=== PATIENT | female | born 1975 | race Caucasian/White ===

== ENCOUNTER 2024-12-21 02:24 | Day surgery (SDC) | payer OTHER, SELFPAY ==
[2024-12-10 09:57] VITALS: BMI 21.4
--- NOTE | 2024-12-10 09:58 | PC.NURSE ---
Report to the Outpatient Waiting Room, entrance under the green pavilion located off [facility], at time ___0600____ on date ___12/21/24____. Planned Procedure Time: ____729____.? Time changes happen often and if your time is changed the preop area will call you the afternoon before. - You and your visitor will be asked to self-screen and do not enter if you have any COVID symptoms. Please call surgeon if you need to reschedule. - A mask is optional within the hospital at this time. Patients may have clear liquids (water, carbonated beverages, clear teas, apple juice) until 3 hours prior to surgery with a maximum of 20 ounces. - No food from midnight until time of surgery and no smoking, or chewing tobacco (or any form of nicotine). No chewing gum, candy or mints. Take only the following medications with a SIP of water on the morning of surgery: None DO NOT STOP ANY OF YOUR OTHER PRESCRIPTION MEDICATIONS PRIOR TO SURGERY EXCEPT THE FOLLOWING Hold all vitamins and supplements for 3 days per anesthesiologist. Please no make-up, nail setswana, hairspray, perfume, deodorant, or body powder the day of surgery.? No jewelry (including any body piercings) or valuables the day of surgery, leave them at home.? Please take a shower or bath the night before, or the morning of, surgery with an antibacterial soap.? Wear comfortable, loose fitting clothing.? Children are encouraged to wear pajamas. - Jewelry must be removed prior to entering the operating room.? Rings and piercings that are not removed may be cut off. - The hospital will not accept responsibility for valuables.? - Please leave all valuables, including medications, at home the day of surgery. If you are going home after surgery, a licensed laborer driver must drive you home.? - NO public transportation without another adult if you receive anesthesia. - We recommend that an adult stay with you for 24 hours following discharge. - We also recommend that you do not drive, make important decision, drink alcoholic beverages, or take any drugs that were not prescribed by your health care provider for at least 24 hours after your discharge time. Follow any additional instructions given to you from your surgeon. Telephone instructions given to Cara and asked if any additional questions and then verbalized understanding. Patient advised to call surgeon office or pre surgery nurse liaison [phone] if any additional questions.
--- OUTSIDE RECORDS SUMMARY | 2024-12-21 02:27 | XMS_ITS | Encounter Summary ---
Author Organization [facility] Facility Care Team Providers Care Rate Clerk Name Role Phone Francisco Kumar MD Primary Care Provider [phone] Maddi Holliday LIVESTOCK FARMWORKER Primary Care Provider Encounter Details Date Type Department Care Team (Latest Contact Info) Description 10/08/2017 Orders Only [facility] CLINCONV ProviderDavin MD [address] [place] [id number] Social History Tobacco Use Types Packs/Day Years Used Date Smoking Tobacco: Never Assessed Comments Unknown Sex and Gender Information Value Date Recorded Sex Assigned at Not on file Legal Sex Female 12:52 AM ENDOSCOPE TECHNICIAN Gender Identity Female 07/10/2022 2:49 PM ENDOSCOPE TECHNICIAN Sexual Orientation Not on file documented as of this encounter Plan of Treatment Not on file documented as of this encounter Procedures Procedure Name Priority Date/Time Associated Diagnosis Comments SCAN - LABS 10/09/2017 12:00 AM ENDOSCOPE TECHNICIAN documented in this encounter Results * SCAN - LABS (10/09/2017 12:00 AM ENDOSCOPE TECHNICIAN) Narrative 10/09/2017 12:00 AM ENDOSCOPE TECHNICIAN Ordered by an unspecified provider. Historical Provider Final Res ult documented in this encounter Visit Diagnoses Not on filedocumented in this encounter Care Teams Rate Clerk Relationship Specialty Start Date End Date Francisco Kumar MD PCP - General Family Medicine 05/18/19 09/24/22 Maddi Holliday NP [address] [place] [address] [id number] PCP - General Family Practice 09/25/22 documented as of this encounter
--- OUTSIDE RECORDS SUMMARY | 2024-12-21 02:27 | XMS_ITS | Clinical Summary ---
Author Organization [facility] Address [address] [place] [id number] Care Team Providers Care Practical Nursing Teacher Name Role Phone Mg Maddiitalo Maxwell APRN Primary Care Provider Encounters Date Type Department Care Team Description 11/24/2024 2:17 PM CDT - 11/24/2024 11:59 PM CDT Hospital Encounter [facility] Mammography [address] [place], [place] [id number] Alexander ms, Jones German, AIRCRAFT ENGINE CYLINDER MECHANIC Discharge Disposition: Home or Self Care (Routine Discharge) 11/24/2024 Travel from Last 3 Months Social History Tobacco Use Types Packs/Day Years Used Date Smoking Tobacco: Never Assessed Comments Unknown Sex and Gender Information Value Date Recorded Sex Assigned at Female 11/24/2024 2:12 PM CDT Legal Sex Female 8:54 PM CDT Gender Identity Female 10/04/2021 4:37 PM QUANTITATIVE CONSULTANT Sexual Orientation Not on file Last Filed Vital Signs Vital Sign Reading Time Taken Comments Blood Pressure 112/68 12/10/2016 10:51 AM CDT Pulse 60 12/10/2016 10:51 AM CDT Temperature - - Respiratory Rate - - Oxygen Saturation - - Inhaled Oxygen Concentration - - Weight 67.1 kg (148 lb) 12/10/2016 10:51 AM CDT Height 175.3 cm (5' 9 ) 12/10/2016 10:51 AM CDT Body Mass Index 21.86 12/10/2016 10:51 AM CDT Plan of Treatment Health Maintenance Due Date Last Done Comments Cervical Cancer Screening Pap Smear (Age 30 to 64) Every 3 Years 1977 Colorectal Cancer Screening Colonoscopy (10 Years) 1977 Annual Physical 1980 Hepatitis C 1995 Hepatitis B Vaccines (1 of 3 - 19+ 3-dose series) 1996 Cervical Cancer Screening Pap with HPV Testing (Age 30 to 64) Every 5 Years 2007 Cervical Cancer Screening with HPV 2007 COVID-19 Vaccine ( season) 2024 Mammogram Screening 11/24/2026 11/24/2024, 11/18/2023, 11/14/2022, Additional history exists DTaP, Tdap and Td Vaccines (4 - Td or Tdap) 07/31/2029 07/31/2019, 08/26/2007, 08/26/2007 Meningococcal B Vaccine Aged Out No l onger eligible based on patient's age to complete this topic Meningococcal Vaccine Aged Out No ousmane get eligible based on patient's age to complete this topic Pneumococcal Vaccine: Pediatrics (0 to 5 Years) and At-Risk Patients (6 to 49 Years) Aged Out No longer eligible based on patient's age to complete this topic RSV Immunizations Under 20 Months Aged Out No longer eligible based on patient's age to complete this topic Procedures Procedure Name Priority Date/Time Associated Diagnosis Comments MG SCREENING W SHANTAL MAKAYLA DIGI Routine 11/24/2024 2:32 PM CDT Visit for screening mammogram from Last 3 Months Results * MG SCREENING W SHANTAL MAKAYLA DIGI (11/24/2024 2:32 PM CDT) Anatomical Region Laterality Modality Breast Bilateral Mammography 11/24/2024 3:02 PM CDT Impressions 11/24/2024 3:13 PM CDT IMPRESSION: No significant interval change. No mammographic evidence of malignancy. Recommend screening mammography bilaterally in 12 months. Given extreme dense breast density, supplemental screening MRI can be considered as clinically appropriate. RECOMMENDATION: As discussed in reportBilateral OVERALL IMAGING ASSESSMENT: ACR BI-RADS 2 - BENIGN FINDING(S). Ordered By: JONES TAVAREZ Interpreted By: Eren Reis, 11/24/2024 3:02 PM Narrative 11/24/2024 3:13 PM CDT [facility] [address] [address] EXAMINATION: MG SCREENING W SHANTAL MAKAYLA DIGI INDICATIONS: Screening TECHNIQUE: Digital full field CC and MLO screening mammography bilaterally to include 3-D Tomosynthesis technique. This study was read with the assistance of a computer-aided detection system. HISTORY: No reported breast complaint. No documented personal or first degree family history of breast cancer. No documented prior breast procedure. COMPARISON: 11/18/2023, 11/14/2022, 10/05/2021, 08/23/2020, and 07/09/2018. TISSUE DENSITY: The breasts are extremely dense, which lowers the sensitivity of mammography. FINDINGS: Few typically benign round calcifications. No suspicious microcalcification or mass. Stable ovoid equal density asymmetry within the upper retroareolar right breast. No developing asymmetry or architectural distortion. No axillary adenopathy. us Jones Tavarez NP MAMMO Final Result from Last [address] [facility] Care Teams Practical Nursing Teacher Relationship Specialty Start Date End Date Maddi Holliday APRN [address] [place] [address] [phone] [facility] - General 11/11/23
--- OUTSIDE RECORDS SUMMARY | 2024-12-21 02:27 | XMS_ITS | Clinical Summary ---
Author Organization [facility] Address [address] [place] [address] Care Team Providers Care Statistician Name Role Phone Unavailable Primary Care Provider Unavailabl e Source Comments [facility],non-owned Affiliates and Associated Physician Practices is amultiple site organization consisting of ambulatory clinics and hospital sitesin [place], [place], [place] and [place]. This disclosure is being madepursuant to the Care Everywhere program and may not contain all information available regarding this patient. Last updated 18.[facility] [employer] Social History Tobacco Use Types Packs/Day Years Used Date Smoking Tobacco: Never Assessed Comments Unknown Sex and Gender Information Value Date Recorded Sex Assigned at Not on file Legal Sex Female 10:41 AM CDT Gender Identity Not on file Sexual Orientation Not on file Plan of Treatment Health Maintenance Due Date Last Done Comments COLOGUARD (AGES 45-75) - COL ON CA SCREENING 1977 COLON MONITORING 1977 COLONOSCOPY - COLON CA SCREENING 1977 CT COLONOGRAPHY - COLON CA SCREENING 1977 Colorectal Cancer Screening 1977 FIT - COLON CA SCREENING 1977 FLEX SIG - COLON CA SCREENING 1977 LIPID TESTING 1977 MAMMOGRAM 1977 HIV SCREENING 1992 HEPATITIS C SCREENING 05/29/1995 DTAP/TDAP/TD VACCINES (1 - Tdap) 1996 HEPATITIS B VACCINE (1 of 3 - 19+ 3-dose series) 1996 COVID-19 VACCINE ( - 2023-2 5 season) 2024 DEPRESSION SCREENING 08/26/2024 INFLUENZA VACCINE (Season Ended) 2025 ZOSTER VACCINE (1 of 2) 2027 HIB VACCINE Aged Out No longer eligi ble based on patient's age to complete this topic HPV VACCINE Aged Out No longer eligi ble based on patient's age to complete this topic MENINGOCOCCAL (Group B) VACC INE SHARED DECISION-MAKING Aged Out No longer eligibl e based on patient's age to complete this topic MENINGOCOCCAL GROUPS A/C/Y/W VACCINE Aged Out No longer eligible b ased on patient's age to complete this topic PNEUMOCOCCAL VACCINE Aged Out No long er eligible based on patient's age to complete this topic Insurance
--- OUTSIDE RECORDS SUMMARY | 2024-12-21 02:27 | XMS_ITS | Encounter Summary ---
Author Organization [facility] Address [address] [place] [address] Care Team Providers Care Gm Mobile Name Role Phone Maddi Holliday NP Primary Care Provider [phone] Encounter Details Date Type Department Care Team ([facility] st Contact Info) Description 11/11/2024 Results Follow-Up [facility] Primary Care at [place] [address] [place] [address] Maddi Holliday NP [address] [facility] [address] [place] [address] Social History Tobacco Use Types Packs/Day Years Used Date Smoking Tobacco: Never Smokeless Tobacco: Never Alcohol Use Standard Drinks/Week Comments Yes 0 (1 standard drink = 0.6 oz pur e alcohol) social AUDIT-C Answer Date Recorded Q1: How often do you have a drink containing alc ohol? Monthly or less 05/01/2023 Q2: How many drinks containi ng alcohol do you have on a typical day when you are drinking? 1 or 2 05/01/2023 Q3: How often do you have si x or more drinks on one occasion? Never 05/01/2023 PHQ-2 Answer Date Recorded PHQ-2 Total Score (If total score is 3 or more points, staff should administer the PHQ-9) 0 10/07/2023 Personal Safety Answer Date Recorded Have you ever been in or are you currently in a harmful physical or emotional relationship or is someone making you feel afraid or unsafe? Denies 05/06/2023 Comments No Sex and Gender Information Value Date Recorded Sex Assigned at Not on file Legal Sex Female 12:52 AM ASSISTANT PROFESSOR OF ANTHROPOLOGY Gender Identity Female 07/10/2022 2:49 PM ASSISTANT PROFESSOR OF ANTHROPOLOGY Sexual Orientation Not on file documented as of this encounter Plan of Treatment Not on file documented as of this encounter Visit Diagnoses Not on filedocumented in this encounter Care Teams Gm Mobile Relationship Specialty Start Date End Date Maddi Holliday NP [address] [place] [id number] PCP - General Family Practice 09/25/22 documented as of this encounter
--- OUTSIDE RECORDS SUMMARY | 2024-12-21 02:27 | XMS_ITS | Clinical Summary ---
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 Name Role Phone Maddi Holliday NP Primary Care Provider [phone] Allergies No known active allergies Medications fish oil-dha-epa 1,200-144-216 mg capsule Take by mouth daily Active ascorbic acid (vitamin C) 1,000 mg tablet Take 1 tablet (1,000 mg total) by mouth 2 (two) times a day Active cholecalciferol (VITAMIN D-3) 2000 unit capsule 1 capsule (2,000 Units total) Active ferrous sulfate 325 mg (65 mg of elemental iron) tabletIndicatio ns:Iron Deficiency Anemia Take 1 tablet (325 mg total) by mouth every other day Active ALPRAZolam (XANAX) 1 mg tabletIndicatio ns:Social anxiety disorder Take 1 tablet (1 mg total) by mouth nightly as needed for anxiety 20 tablet 11/17/2024 Active Active Problems Problem Noted Date Diagnosed Date Vitamin D deficiency 11/17/2024 Assessment & Plan (11/17/2024 7:50 AM CDT): Controlled Continued on vitamin D3 2000 international units daily Low iron 10/07/2023 Assessment & Plan (11/17/2024 7:30 AM CDT): Controlled, but low normal Advised to increase ferrous sulfate to daily Assessment & Plan (10/07/2023 8:39 AM HOOP COILER): New diagnosis, stability unknown Ordered CBC, iron profile, and ferritin level Screening for thyroid disorder 10/07/2023 History of colon polyps 01/16/2023 Encounter for screening mamm ogram for malignant neoplasm of breast 09/27/2022 Assessment & Plan (09/27/2022 8:00 AM HOOP COILER): Encouraged to keep appointment for mammogram scheduled 09/2022, ordered by immigration case worker. Screening for iron deficiency anemia 09/27/2022 Assessment & Plan (09/27/2022 7:59 AM HOOP COILER): Ordered CBC. Encounter for vitamin deficiency screening 09/27 Assessment & Plan (09/27/2022 8:00 AM HOOP COILER): Ordered vitamin-D 25 [place]. Lipid screening 09/27/2022 Assessment & Plan (09/27/2022 8:00 AM HOOP COILER): Ordered lipid panel. Diabetes mellitus screening 09/27/2022 Assessment & Plan (09/27/2022 8:02 AM HOOP COILER): Ordered CMP and hemoglobin A1c. Screening for colon cancer 09/27/2022 Assessment & Plan (09/27/2022 8:00 AM HOOP COILER): Referred for screening colonoscopy. Social anxiety disorder 09/27/2022 Assessment & Plan (11/17/2024 7:29 AM CDT): Controlled Continued on alprazolam as directed as needed Assessment & Plan (10/07/2023 8:36 AM HOOP COILER): Chronic, stable, controlled with medication Continued on alprazolam as directed as needed, refill for alprazolam sent to pharmacy Assessment & Plan (09/27/2022 8:04 AM HOOP COILER): Chronic, stable, controlled with medication-refill for alprazolam sent to pharmacy per patient request. Slow transit constipation 09/27/2022 Assessment & Plan (11/17/2024 7:29 AM CDT): Controlled Continued on MiraLax as directed as needed Assessment & Plan (10/07/2023 8:37 AM HOOP COILER): Chronic, stable, controlled with PRN medication Continued on MiraLax as directed as needed Assessment & Plan (09/27/2022 8:05 AM HOOP COILER): Chronic, stable, controlled with diet-encouraged high-fiber diet, can use MiraLax as directed as needed. Primary insomnia 09/27/2022 Assessment & Plan (11/17/2024 7:29 AM CDT): Controlled Continued on alprazolam for social anxiety, can take HS if needed for insomnia Assessment & Plan (10/07/2023 8:38 AM HOOP COILER): Chronic, stable Continued on alprazolam for social anxiety, can take HS if needed for insomnia Assessment & Plan (09/27/2022 8:08 AM HOOP COILER): Chronic, stable, uncontrolled-can try melatonin or Benadryl for sleep and encouraged good sleep hygiene, turning off electronic devices 2 hour before bedtime, avoiding caffeine in the afternoon/early evening, etc.. Family history of ventricular tachycardia 2019 Annual physical exam 03/31/2019 Overview (03/31/2019): OVerall well adult history and physical exam. Assessment & Plan (11/17/2024 7:28 AM CDT): Reviewed past and current medical history, surgical history, social history, family history, current medications, and allergies. The chart was updated to identify any changes in these areas. Assessment & Plan (10/07/2023 8:36 AM HOOP COILER): Reviewed past and current medical history, surgical history, social history, family history, current medications, and allergies. The chart was updated to identify any changes in these areas. A ROS and PE were performed. Medication was refilled and labs were ordered. Discussed screening colonoscopy, well woman exam/cervical cancer screening, screening mammogram, and recommended immunizations. Patient will follow-up annually for a physical exam, sooner if needed. Assessment & Plan (09/27/2022 8:02 AM HOOP COILER): Reviewed past and current medical history, surgical history, social history, family history, current medications, and allergies. A ROS and PE were performed. Medication was refilled and labs were ordered and a referral was made for a screening colonoscopy. Discussed screening colonoscopy, well woman exam/cervical cancer screening, screening mammogram, monthly breast self-exams, and recommended immunizations. Patient will schedule appointment for annual PE. Resolved Problems Problem Noted Date Diagnosed Date Resolved Date Right lower quadrant abdominal mass 11/19/2023 11/17/2024 Assessment & Plan (11/19/2023 7:16 PM CDT): Acute, with no visible or palpable mass noted, states episodic per patient report Ordered US abdomen Hyponatremia 02/25/2023 11/19/2023 Assessment & Plan (10/07/2023 8:36 AM HOOP COILER): New diagnosis, stability unknown Ordered CMP Palpitations 07/31/2019 10/07/2023 Assessment & Plan (09/27/2022 8:02 AM HOOP COILER): Chronic, episodic, stable-can refer to Cardiology if/when interested, especially if symptom increases in frequency or severity or if experiencing chest pain and/or shortness of breath. Ordered CBC, CMP, iron profile and TSH level. Assessment & Plan (07/31/2019 12:05 PM HOOP COILER): With past 2 weeks heart pounding and dyspnea on exertion. Worsening and onset directly after beginning exertion. No change in exercise levels. No other associated symptoms. Will obtain lab workup and refer to Cardiology for further workup. Advised to avoid exertion if triggering symptoms. Follow up with primary provider as needed Encounters Date Type Department Care Team Description 11/17/2024 7:30 AM CDT Office Visit [facility] Primary Care at [address] [place] [address] Maddi Holliday NP Annual physical exam (Primary Dx); Social anxiety disorder; Slow transit constipation; Primary insomnia; Low iron; Vitamin D deficiency; Need for hepatitis B screening test; Need for hepatitis C screening test 11/11/2024 Results Follow-Up [facility] Primary Care at [address] [place] [address] Maddi Holliday NP from Last 3 Months Immunizations Immunization Administration Dates Next Due Influenza, Quadrivalent, Spl it, Preservative Free, Intramuscular 07/22/2023,07/01/2020 Influenza, Trivalent, Preser vative Free, Intramuscular 06/11/2016 Influenza, Unspecified 05/26/2024,2022,06/24/2022,05/26 TD Preservative Free 08/26/2007 Tdap 07/31/2019,08/26/2007 Surgical History Surgery Date Site/Laterality Comments CERVICAL BIOPSY W/ LOOP ELEC TRODE EXCISION COLONOSCOPY ARM SURGERY Left 1994, metal removed 1995 Medical History Medical History Date Comments Right lower quadrant abdominal mass 11/19/2023 Family History Medical History Relation Name Comments Clotting disorder Father E Naeger Depression Father E Naeger Heart disease Father E Naeger Hypertension Father E Naeger COPD Maternal Grandmother A Kreitler Hypertension Mother Heart disease Paternal Grandfather H Naeger Diabetes Paternal Grandmother H Naeger Heart disease Paternal Grandmother H Naeger Stroke Paternal Grandmother H Naeger Relation Name Status Comments Father E Naeger Alive Maternal Grandmother A Kreitler Mother Alive Paternal Grandfather H Naeger Paternal Grandmother H Naeger Social History Tobacco Use Types Packs/Day Years Used Date Smoking Tobacco: Never Smokeless Tobacco: Never Tobacco Cessation:Counseling Given: Not Answered Alcohol Use Standard Drinks/Week Comments Yes 0 [...] points, staff should administer the PHQ-9) 0 11/17/2024 PHQ-9 Answer Date Recorded PHQ-9 Total Score 4 11/17/2024 Personal Safety Answer Date Recorded Have you ever been in or are you currently in a harmful physical or emotional relationship or is someone making you feel afraid or unsafe? Denies 05/06/2023 Comments No Sex and Gender Information Value Date Recorded Sex Assigned at Not on file Legal Sex Female 12:52 AM HOOP COILER Gender Identity Female 07/10/2022 2:49 PM HOOP COILER Sexual Orientation Not on file Obstetrics History Last Filed Vital Signs Vital Sign Reading Time Taken Comments Blood Pressure 98/60 11/17/2024 7:32 AM CDT Pulse 72 11/17/2024 7:32 AM CDT Temperature 36.7 C (98.1 F) 11/17/2024 7:32 AM CDT Respiratory Rate 14 11/17/2024 7:32 AM CDT Oxygen Saturation 99% 11/17/2024 7:32 AM CDT Inhaled Oxygen Concentration - - Weight 69.6 kg (153 lb 8 oz) 11/17/2024 7:32 AM CDT Height 175 cm (5' 8.9 ) 11/17/2024 7:32 AM CDT Body Mass Index 22.74 11/17/2024 7:32 AM CDT Plan of Treatment Health Maintenance Due Date Last Done Comments Hepatitis C Screening 1975 Hepatitis B Screening 1995 Breast Cancer Screening-Mammogram 11/17/2024 11/18/2023, 11/18/2023, 11/14/2022, Additional history exists Depression Screening 11/17/2025 11/17/2024, 11/17/2024, 10/07/2023, Additional history exists Regular Well Visit/Exam 18-64 11/17/2025 11/17/2024, 10/07/2023, 09/25/2022, Additional history exists Colon Cancer Screening-Colonoscopy 05/06/2026 05/06/2023, 12/17/2022 Cervical Cancer Screening 08/08/2026 08/08/2023 DTaP/Tdap/Td Vaccine (3 - Td or Tdap) 07/31/2029 07/31/2019, 08/26/2007, 08/26/2007 Influenza Vaccine Completed 05/26/2024, , 06/26/2023, Additional history exists Pneumococcal vaccine <65 Aged Out No longer eligible based on patient's age to complete this topic Procedures Procedure Name Priority Date/Time Associated Diagnosis Comments HEMOGLOBIN A1C Routine 11/10/2024 8:26 AM CDT Annual physical exam COMPREHENSIVE METABOLIC PANEL Routine 11/10/2024 8:26 AM CDT Annual physical exam LIPID PANEL Routine 11/10/2024 8:26 AM CDT Annual physical exam IRON PROFILE W/ IBC Routine 11/10/2024 8 :26 AM CDT Low iron Annual physical exam PAP ONLY Routine 08/08/2023 COLONOSCOPY 05/06/2023 10:33 AM CDT SCREENING MAMMOGRAM 2D BILATERAL Schedule Routine, Read Routine (OP Routine) 08/23/2020 from Last 3 Months or Most Recently Relevant to Health Maintenance Results * (ABNORMAL) Iron profile w/ IBC (11/10/2024 8:26 AM CDT) [facility] Iron 40 40 - 190 mcg/dL [facility] TIBC 298 250 - 450 mcg/dL (calc) [facility] Iron saturation 13(L) 16 - 45 % (calc) [facility] Blood 11/10/2024 8:26 AM CDT 11/10/2024 8:27 AM CDT Narrative [facility] - 11/11/2024 6:55 AM CDT FASTING:YES FASTING: YES us Samantha Saldivar MD LAB BLOOD ORDERAB LES Final Result [facility] [id number] [place] [id number] * Hemoglobin A1c (11/10/2024 8:26 AM CDT) [facility] Hgb A1C 5.2 <5.7 % of total Hgb [facility] Comment: For the purpose of screening for the presence of diabetes: <5.7% Consistent with the absence of diabetes 5.7-6.4% Consistent with increased risk for diabetes (prediabetes) > or =6.5% Consistent with diabetes This assay result is consistent with a decreased risk of diabetes. Currently, no consensus exists regarding use of hemoglobin A1c for diagnosis of diabetes in children. According to [place] [employer] Association (ADA) guidelines, hemoglobin A1c <7.0% represents optimal control in non- diabetic patients. Different metrics may apply to specific patient populations. Standards of Medical Care in Diabetes(ADA). Blood 11/10/2024 8:26 AM CDT 11/10/2024 8:27 AM CDT Narrative [facility] - 11/11/2024 6:55 AM CDT FASTING:YES FASTING: YES Samantha Saldivar MD LAB BLOOD ORDERAB LES Final Result [facility] [address] [place] [address] * Lipid panel (11/10/2024 8:26 AM CDT) [facility] Cholesterol 150 <200 mg/dL [facility] HDL 61 > OR = 50 mg/dL [facility] Triglycerides 47 <150 mg/dL [facility] LDL 76 mg/dL (calc) [facility] Comment: Reference range: <100 Desirable range <100 mg/dL for primary prevention; <70 mg/dL for patients with CHD or diabetic patients with > or = 2 CHD risk factors. LDL-C is now calculated using the Marvin-Melany calculation, which is a validated novel method providing better accuracy than the Friedewald equation in the estimation of LDL-C. Marvin BINGHAM et al. SUSAN. 2013;310(19): 4077-5489 (http://education.Access MediQuip/faq/ERD803) Chol/HDL ratio 2.5 <5.0 (calc) [facility] Non-HDL, (LDL+VLDL) 89 <130 mg/dL (calc) [facility] Comment: For patients with diabetes plus 1 major ASCVD risk factor, treating to a non-HDL-C goal of <100 mg/dL (LDL-C of <70 mg/dL) is considered a therapeutic option. Blood 11/10/2024 8:26 AM CDT 11/10/2024 8:27 AM CDT Narrative [facility] - 11/11/2024 6:55 AM CDT FASTING:YES FASTING: YES us Samantha Saldivar MD LAB BLOOD ORDERAB LES Final Result [facility] [id number] [place] [id number] * (ABNORMAL) Comprehensive metabolic panel (11/10/2024 8:26 AM CDT) Pathologist [facility] Glucose 84 65 - 99 mg/dL [facility] Comment: Fasting reference interval BUN 22 7 - 25 mg/dL [facility] Creatinine 0.81 0.50 - 0.99 mg/dL [facility] eGFR 90 > OR = 60 mL/min/1.7 3m2 [facility] BUN/creat ratio SEE NOTE: 6 - 22 (calc) [facility] Comment: Not Reported: BUN and Creatinine are within reference range. Sodium 138 135 - 146 mmol/L [facility] Potassium, pl 4.0 3.5 - 5.3 mmol/L [facility] Chloride 105 98 - 110 mmol/L [facility] CO2 28 20 - 32 mmol/L [facility] Calcium 8.7 8.6 - 10.2 mg/dL [facility] Protein, sr 6.0(L) 6.1 - 8.1 g/dL [facility] Albumin 4.0 3.6 - 5.1 g/dL [facility] GLOBULIN 2.0 1.9 - 3.7 g/dL (calc) [facility] Alb/glob ratio 2.0 1.0 - 2.5 (calc) [facility] Bilirubin, total 0.5 0.2 - 1.2 mg/dL [facility] Alk phos 42 31 - 125 U/L [facility] AST 19 10 - 35 U/L [facility] ALT (SGPT) 25 6 - 29 U/L [facility] Blood 11/10/2024 8:26 AM CDT 11/10/2024 8:27 AM CDT Narrative [facility] - 11/11/2024 6:55 AM CDT FASTING:YES FASTING: YES Samantha Saldivar MD LAB BLOOD ORDERAB LES Final Result [facility] [id number] [place] [phone] * Pap Only (Cytology Component) (08/08/2023) Thin prep 08/08/2023 us Historical Provider LAB CYTOLOGY ORDERABLES F inal Result * COLONOSCOPY (05/06/2023 10:33 AM CDT) Anatomical Region Laterality Modality Other Narrative Procedure Note Alberto Gates MD - 05/06/2023 10:33 AM CDT [facility] GI ENDOSCOPY Patient Name: Cara Thakkar Procedure Date: 05/06/2023 10:33 AM Date of : 1975 Admit Type: Outpatient Age: 47 Gender: Female Attending MD: Alberto Gates M.D. Room: [facility] ENDOSCOPY ROOM 05 Note Status: Finalized Procedure: Colonoscopy Indications: High risk colon cancer surveillance: Personalhistory of colonic polyps Referring MD: Lino Caldwell Providers: Alberto Gates M.D. Medicines: Monitored Anesthesia Care Complications: No immediate complications. Estimated Blood Loss: Estimated blood loss was minimal. Procedure: The benefits, risks and alternatives of theprocedure and sedation were discussed and informed consentwas obtained. All questions were answered. Please referto the signed informed consent document in the medical record. The scope was passed under direct vision.The CF-H180AL colonoscope was introduced through theanus and advanced to the cecum, identified byappendiceal orifice and ileocecal valve. The colonoscopy was performed without difficulty. The patient tolerated the procedure well. The quality of the bowel preparation was evaluated using the BBPS (BostonBowel Preparation Scale) with scores of: Right Colon = 3, Transverse Colon = 3 and Left Colon = 3 (entiremucosa seen well with no residual staining, smallfragments of stool or opaque liquid). The total BBPS score equals 9. The ileocecal valve, appendiceal orifice, and rectum were photographed. Findings: The perianal and digital rectal examinations were normal. Site of prior polypectomy normal without any residual abnormaltissue. A 4 mm polyp was found in the transverse colon. The polyp wassessile. The polyp was removed with a cold snare. Resection and retrieval were complete. Estimated blood loss was minimal. The exam was otherwise without abnormality on direct and retroflexion views. Impression: - One 4 mm polyp in the transverse colon, removedwith a cold snare. Resected and retrieved. - Site of prior polypectomy normal without any residual abnormal tissue. - The examination was otherwise normal on directand retroflexion views. Recommendation: - Discharge patient to home. - Resume previous diet. - Continue present medications. - Await pathology results. - Patient has a contact number available for emergencies. The signs and symptoms of potential delayed complications were discussed with thepatient. Return to normal activities tomorrow. Written discharge instructions were provided to thepatient. - Repeat colonoscopy in 3 years for surveillance. Alberto Gates M.D. Alberto Gates M.D. 05/06/2023 11:10:37 AM . Number of Addenda: 0 Note Initiated On: 05/06/2023 10:33 AM Recognized by the [place] [employer] for promoting quality in endoscopy Alberto Gates MD ENDOSCOPY PROCEDURES Fin al Result * Screening Mammogram 2D Bilateral (08/23/2020) Anatomical Region Laterality Modality Breast Bilateral Mammography Historical Provider IMG MAMMO PROCEDURES Марина l Result from Last 3 Months or Most Recently Relevant to Health Maintenance Insurance [facility] [employer] PPO R [facility] Care Teams Petroleum Engineering Professor Relationship Specialty Start Date End Date Maddi Holliday NP [address] [place] [address] [place] [address] PCP - General Family Practice 09/25/22
--- OUTSIDE RECORDS SUMMARY | 2024-12-21 02:27 | XMS_ITS | Referral Summary ---
Author Organization [facility] Building Address [address] [place] [phone] Care Team Providers Care Professional Services Specialist Name Role Phone Maddi Holliday NP Primary Care Provider Encounters Date Type Department Care Team Description 11/17/2024 7:30 AM CDT Office Visit [facility] Primary Care at [address] [phone] Maddi Holliday NP Annual physical exam (Primary Dx); Social anxiety disorder; Slow transit constipation; Primary insomnia; Low iron; Vitamin D deficiency; Need for hepatitis B screening test; Need for hepatitis C screening test 11/11/2024 Results Follow-Up [facility] Medical [facility] Primary Care at [address] [phone] Maddi Holliday NP from Last 3 Months Allergies No known active allergies Medications fish [...] daily Assessment & Plan (10/07/2023 8:39 AM DRAFTER DIRECTIONAL SURVEY): New diagnosis, stability unknown Ordered CBC, iron profile, and ferritin level Screening for thyroid disorder 10/07/2023 History of colon polyps 01/16/2023 Encounter for screening mamm ogram for malignant neoplasm of breast 09/27/2022 Assessment & Plan (09/27/2022 8:00 AM DRAFTER DIRECTIONAL SURVEY): Encouraged to keep appointment for mammogram scheduled 09/2022, ordered by art glass designer. Screening for iron deficiency anemia 09/27/2022 Assessment & Plan (09/27/2022 7:59 AM DRAFTER DIRECTIONAL SURVEY): Ordered CBC. Encounter for vitamin deficiency screening 09/27 Assessment & Plan (09/27/2022 8:00 AM DRAFTER DIRECTIONAL SURVEY): Ordered vitamin-D 25 OH. Lipid screening 09/27/2022 Assessment & Plan (09/27/2022 8:00 AM DRAFTER DIRECTIONAL SURVEY): Ordered lipid panel. Diabetes mellitus screening 09/27/2022 Assessment & Plan (09/27/2022 8:02 AM DRAFTER DIRECTIONAL SURVEY): Ordered CMP and hemoglobin A1c. Screening for colon cancer 09/27/2022 Assessment & Plan (09/27/2022 8:00 AM DRAFTER DIRECTIONAL SURVEY): Referred for screening colonoscopy. Social anxiety disorder 09/27/2022 Assessment & Plan (11/17/2024 7:29 AM CDT): Controlled Continued on alprazolam as directed as needed Assessment & Plan (10/07/2023 8:36 AM DRAFTER DIRECTIONAL SURVEY): Chronic, stable, controlled with medication Continued on alprazolam as directed as needed, refill for alprazolam sent to pharmacy Assessment & Plan (09/27/2022 8:04 AM DRAFTER DIRECTIONAL SURVEY): Chronic, stable, controlled with medication-refill for alprazolam sent to pharmacy per patient request. Slow transit constipation 09/27/2022 Assessment & Plan (11/17/2024 7:29 AM CDT): Controlled Continued on MiraLax as directed as needed Assessment & Plan (10/07/2023 8:37 AM DRAFTER DIRECTIONAL SURVEY): Chronic, stable, controlled with PRN medication Continued on MiraLax as directed as needed Assessment & Plan (09/27/2022 8:05 AM DRAFTER DIRECTIONAL SURVEY): Chronic, stable, controlled with diet-encouraged high-fiber diet, can use MiraLax as directed as needed. Primary insomnia 09/27/2022 Assessment & Plan (11/17/2024 7:29 AM CDT): Controlled Continued on alprazolam for social anxiety, can take HS if needed for insomnia Assessment & Plan (10/07/2023 8:38 AM DRAFTER DIRECTIONAL SURVEY): Chronic, stable Continued on alprazolam for social anxiety, can take HS if needed for insomnia Assessment & Plan (09/27/2022 8:08 AM DRAFTER DIRECTIONAL SURVEY): Chronic, stable, uncontrolled-can try melatonin or Benadryl [...] areas. Assessment & Plan (10/07/2023 8:36 AM DRAFTER DIRECTIONAL SURVEY): Reviewed past and current medical history, surgical [...] needed. Assessment & Plan (09/27/2022 8:02 AM DRAFTER DIRECTIONAL SURVEY): Reviewed past and current medical history, surgical [...] 11/19/2023 Assessment & Plan (10/07/2023 8:36 AM DRAFTER DIRECTIONAL SURVEY): New diagnosis, stability unknown Ordered CMP Palpitations 07/31/2019 10/07/2023 Assessment & Plan (09/27/2022 8:02 AM DRAFTER DIRECTIONAL SURVEY): Chronic, episodic, stable-can refer to Cardiology if/when interested, especially if symptom increases in frequency or severity or if experiencing chest pain and/or shortness of breath. Ordered CBC, CMP, iron profile and TSH level. Assessment & Plan (07/31/2019 12:05 PM DRAFTER DIRECTIONAL SURVEY): With past 2 weeks heart pounding and dyspnea on exertion. Worsening and onset directly after beginning exertion. No change in exercise levels. No other associated symptoms. Will obtain lab workup and refer to Cardiology for further workup. Advised to avoid exertion if triggering symptoms. Follow up with primary provider as needed Immunizations Immunization Administration Dates Next Due Influenza, Quadrivalent, Spl it, Preservative Free, Intramuscular 07/22/2023,07/01/2020 Influenza, Trivalent, Preser vative Free, Intramuscular 06/11/2016 Influenza, Unspecified 05/26/2024,2022,06/24/2022,05/26 TD Preservative Free 08/26/2007 Tdap 07/31/2019,08/26/2007 Social History Tobacco Use Types Packs/Day Years [...] on file Legal Sex Female 12:52 AM DRAFTER DIRECTIONAL SURVEY Gender Identity Female 07/10/2022 2:49 PM DRAFTER DIRECTIONAL SURVEY Sexual Orientation Not on file Last Filed [...] 11/17/2024 7:32 AM CDT Plan of Treatment Not on file Procedures Procedure Name Priority Date/Time Associated Diagnosis [...] profile w/ IBC (11/10/2024 8:26 AM CDT) Iron 40 40 - 190 mcg/dL [facility] TIBC 298 250 - 450 mcg/dL (calc) [facility] Iron saturation 13(L) 16 - 45 % (calc) [facility] Blood 11/10/2024 8:26 AM CDT 11/10/2024 8:27 AM CDT Narrative [facility] - 11/11/2024 6:55 AM CDT FASTING:YES FASTING: YES Samantha Saldivar MD LAB BLOOD ORDERAB LES Final Result Performing Organization Address City/[facility]/ZIP Co de Phone Number [facility] [address] [phone] * Hemoglobin A1c (11/10/2024 8:26 AM CDT) Hgb A1C 5.2 <5.7 % of total Hgb [facility] Comment: For the purpose of screening for the presence of diabetes: <5.7% Consistent with the absence of diabetes 5.7-6.4% Consistent with increased risk for diabetes (prediabetes) > or =6.5% Consistent with diabetes This assay result is consistent with a decreased risk of diabetes. Currently, no consensus exists regarding use of hemoglobin A1c for diagnosis of diabetes in children. According to [place] Diabetes Association (ADA) guidelines, hemoglobin A1c <7.0% represents optimal control in non- diabetic patients. Different metrics may apply to specific patient populations. Standards of Medical Care in Diabetes(ADA). Blood 11/10/2024 8:26 AM CDT 11/10/2024 8:27 AM CDT Narrative [facility] - 11/11/2024 6:55 AM CDT FASTING:YES FASTING: YES Samantha Saldivar MD LAB BLOOD ORDERAB LES Final Result Performing Organization Address City/[facility]/ZIP Co de Phone Number [facility] [address] [place] [address] * Lipid panel (11/10/2024 8:26 AM CDT) Cholesterol 150 <200 mg/dL [facility] [...] factors. LDL-C is now calculated using the Marvin-Mosley calculation, which is a validated novel method providing better accuracy than the Friedewald equation in the estimation of LDL-C. Marvin SS et al. SUSAN. 2013;310(19): 6898-7883 (http://education.[employer]/faq/KAF059) Chol/HDL ratio 2.5 <5.0 (calc) [facility] [...] BLOOD ORDERAB LES Final Result [facility] [address] [place] [address] * (ABNORMAL) Comprehensive metabolic panel (11/10/2024 8:26 AM CDT) Pathologist [facility] Glucose 84 65 - 99 mg/dL [facility] [...] BLOOD ORDERAB LES Final Result [facility] [address] [facility] [place] [address] * Pap Only (Cytology Component) (08/08/2023) Thin prep 08/08/2023 Historical Provider LAB CYTOLOGY ORDERABLES F inal Result * COLONOSCOPY (05/06/2023 10:33 AM CDT) Anatomical Region Laterality Modality Other Narrative Procedure Note Alberto Gates MD - 05/06/2023 10:33 AM CDT [facility] Patient Name: Cara Thakkar Procedure Date: 05/06/2023 10:33 AM Date of : 1975 Admit Type: Outpatient Age: 47 Gender: Female Attending MD: Alberto Gates M.D. Room: [facility] END[facility]COPY ROOM 05 Note Status: Finalized [...] On: 05/06/2023 10:33 AM Recognized by the [place] [employer] for promoting quality in endoscopy Alberto Gates MD ENDOSCOPY PROCEDURES Fin al Result * Screening Mammogram 2D Bilateral (08/23/2020) Anatomical Region Laterality Modality Breast Bilateral Mammography Historical Provider IMG MAMMO PROCEDURES Марина l Result from Last 3 Months or Most Recently Relevant to Health Maintenance Insurance [employer] PPO [facility] Care Teams Professional Services Specialist Relationship Specialty Start Date End Date Maddi Holliday NP [address] [place] [address] [place] [address] PCP - General Family Practice 09/25/22
--- OUTSIDE RECORDS SUMMARY | 2024-12-21 02:27 | XMS_ITS | Clinical Summary ---
Author Organization [address] - [address]22 Address [address] [facility] 3rd [place] [address] Phone Care Team Providers Care Rigging Helper Name Role Phone Unavailable Primary Care Provider Unavailabl e Encounters Date Type Department Care Team Description 12/08/2024 External Device Data STL ABSTRACTION Provider, Abstract 11/11/2024 External Device Data [facility] ABSTRACTION Provider, Abstract 11/03/2024 External Device Data ST[facility] ABSTRACTION Provider, Abstract 11/03/2024 External Device Data STL ABSTRACTION Provider, Abstract 10/31/2024 External Device Data STL ABSTRACTION Provider, Abstract 10/30/2024 External Device Data STL ABSTRACTION Provider, Abstract 10/28/2024 External Device Data ST[facility] ABSTRACTION Provider, Abstract 10/13/2024 External Device Data STL ABSTRACTION Provider, Abstract 09/22/2024 External Device Data STL ABSTRACTION Provider, Abstract from Last 3 Months Social History Tobacco Use Types Packs/Day Years Used Date Smoking Tobacco: Never Assessed Comments Unknown Sex and Gender Information Value Date Recorded Sex Assigned at Not on file Legal Sex Female 3:05 PM HAT MARKER Gender Identity Not on file Sexual Orientation Not on file Plan of Treatment Health Maintenance Due Date Last Done Comments HEPATITIS B VACCINES (1 of 3 - 19+ 3-dose series) 1996 HPV/Cotest (21-29) 1998 CERVICAL CANCER SCREENING 2007 HPV/Cotest (30-65) 2007 PAP SMEAR 2007 FIT-DNA Q 3 years 2022 FIT/FOBT Q 1 year 2022 Flex Sig/CT Colonography Q 5 years 2022 BREAST CANCER SCREENING 11/17/2024 11/18/19 24, 11/18/2023, 11/14/2022, Additional history exists DTAP/TDAP/TD VACCINES (3 - T d or Tdap) 07/31/2029 07/31/2019, 08/26/2007, 08/26/2007 COLORECTAL SCREENING 05/06/2033 05/06/2023, 05/06/2023, 12/17/2022 Colorectal Cancer Screening 05/06/2033 INFLUENZA VACCINE Completed 05/11/2024, , 07/01/2020, Additional history exists Insurance [employer] PPO
--- OUTSIDE RECORDS SUMMARY | 2024-12-21 02:27 | XMS_ITS | Encounter Summary ---
Author Organization [facility] Address [address] [place] [address] Care Team Providers Care Doorshaker Name Role Phone Unavailable Primary Care Provider Unavailabl e Encounter Details Date Type Department Care Team (Late st Contact Info) Description 11/02/2021 Lab Requisition [facility] [address] [place] [address] Saeid Pascual MD [address] [address] Social History Tobacco Use Types Packs/Day Years Used Date Smoking Tobacco: Never Assessed Comments Unknown Sex and Gender Information Value Date Recorded Sex Assigned at Not on file Legal Sex Female 10:41 AM CDT Gender Identity Not on file Sexual Orientation Not on file documented as of this encounter Plan of Treatment Not on file documented as of this encounter Procedures Procedure Name Priority Date/Time Associated Diagnosis Comments DERMATOPATHOLOGY Routine 11/02/2021 12:0 0 AM MARKETING SUPPORT SPECIALIST documented in this encounter Results * DERMATOPATHOLOGY (11/02/2021 12:00 AM MARKETING SUPPORT SPECIALIST) Case Report Dermatopathology Report Case: [id number] Authorizing Provider: Saeid Pascual MD Collected: 11/02/2021 12:00 AM Ordering Location: [facility] Received: 11/02/2021 04:54 PM Pathologist: Eve Parker MD Specimens: A) - Skin, left axilla B) - Skin, left hip 3:43 PM CDT DERMATOPATHOLOGY LABORATORY Final Diagnosis Specimen A. SKIN, left axilla: COMPOUND MELANOCYTIC NEVUS (D22.5) (see microscopic description) Specimen B. SKIN, left hip: INTRADERMAL MELANOCYTIC NEVUS (D22.72) 2 3:43 PM T DERMATOPATHOLOGY LABORATORY Clinical History A: Nevus Path# [id number] B: Nevus Path# [id number] 2 3:43 PM CDT DERMATOPATHOLOGY LABORATORY Gross Description Specimen A: Received is one formalin filled container labeled with the patient's name and designated left axilla. The specimen consists of a shave biopsy measuring [id number]. Jar 0. Specimen B: Received is one formalin filled container labeled with the patient's name and designated left hip. The specimen consists of a shave biopsy measuring [id number]. Jar 0. 2 3:43 PM CDT DERMATOPATHOLOGY LABORATORY Microscopic Description Specimen A. SKIN, left axilla: There are nests of melanocytes at the dermal-epidermal junction and within the dermis. Additional deeper sections were obtained and reviewed. Specimen B. SKIN, left hip: There are nests of cytologically bland melanocytes within the dermis that mature with depth. 2 3:43 PM CDT DERMATOPATHOLOGY LABORATORY Disclaimer An external and internal positive and negative controls are appropriate for the histochemical, immunohistochemical and immunofluorescence stain(s) in this case (if any), except where stated explicitly. The performance characteristics of the stain(s) cited in this report were developed and its performance characteristic determined by the Dermatopathology Laboratory at [facility], directed by Dr. Driss Becker. These tests need not be, and therefore are not, approved by the [place] Food and Drug Administration. The tests are used for clinical purposes. Billing Codes Specimen Charges Stain Charges 70277 02381 1 1 2 3:43 PM CDT DERMATOPATHOLOGY LABORATORY Embedded Images 2 3:43 PM CDT DERMATOPATHOLOGY LABORATORY Pathology/Cytology TISSUE SPECIMEN FROM SKIN / Unknown 11/02/2021 11/02/2021 4:54 PM MARKETING SUPPORT SPECIALIST Miscellaneous samples (specimen) TISSUE SPECIMEN FROM SKIN / Unknown 11/02/2021 11/02/2021 4:54 PM MARKETING SUPPORT SPECIALIST us Saeid Pascual MD LAB - PATHOLOGY/CYTOLOGY ORDER PATTI Final Result DERMATOPATHOLOGY LABORATORY [facility] - Department of Dermatology [facility] [address] [place] [address], [address] [phone] documented in this encounter Visit Diagnoses Not on filedocumented in this encounter
[2024-12-21 06:11] VITALS: BP 113/77; PULSE 64; RESP 16; TEMP 36.6; O2SAT 100
[2024-12-21] MEDS: ACETAMINOPHEN 500 MG TABLET 1000 MG PO (06:20)
[2024-12-21] MEDS: LACTATED RINGERS 1,000 ML 30 ML IV CONT (06:25)
--- NOTE | 2024-12-21 07:05 | P.PNAN_ITS ---
Anes - Initial Pre Proc Eval Procedure: Operation Date: 12/21/24 07:30 Proposed Procedures p Hysteroscopy Dilation and Curettage - Sandra Donald MD Date/Time: 12/21/24 07:05 Surgeon: Sandra Donald MD Pre Op Diagnosis: menorrhagia Patient Data Age: 49 Gender: F Height: 1.75 m Weight: 68.15 kg Last Vital Signs Temp 36.6 C 12/21/24 06:11 Pulse 64 12/21/24 06:11 Resp 16 12/21/24 06:11 BP 113/77 12/21/24 06:11 Pulse Ox 100 12/21/24 06:11 O2 Del Method Room Air 12/21/24 06:11 Allergies Allergy/AdvReac Type Severity Reaction Status Date / Time No Known Allergies Allergy Unverified 12/21/24 06:46 Home Medications ?Medication ?Instructions ?Recorded ?Confirmed ?Type ascorbic acid (vitamin C) 1,000 mg 1 g PO DAILY 12/10/24 12/21/24 History capsule berberine chloride 500 mg capsule 500 mg PO DAILY 12/10/24 12/21/24 History ferrous sulfate 325 mg (65 mg 325 mg PO DAILY 12/10/24 12/21/24 History iron) tablet (Feosol) multivitamin (Daily Multi-Vitamin 1 tablet PO DAILY 12/10/24 12/21/24 History tablet) vit D3-folic acid-vit B2-B6-B12 1 tablet PO DAILY 12/10/24 12/21/24 History 2,000 unit-800 mcg-0.32 mg tablet Patient hx anesthesia problems: none Family hx anesthesia problems: none Results Review: All pre-operative results and documents have been reviewed as part of the pre- operative evaluation. [facility] Social History Social History Smoking status: Never smoker Alcohol use details: 4 drinks/month Substance use: never Substance use type: does not use Living arrangements: with family Anes - Eval Final PreProcedure Day of Procedure 12/21/24 07:05 Patient weight: normal Heart: regular rate and rhythm Lungs: clear to auscultation and normal air movement Airway: Mallampati scale class 1 Neurological: alert and oriented Last oral intake: >/= 8 hours ASA classification: I Emergent: no Anesthetic plan: proceed Anesthesia type and monitoring: general GIVS and standard monitoring Results Review: All pre-operative results and documents have been reviewed as part of the pre- operative evaluation. Informed Consent: The patient's anesthetic plan and its attendant risks and benefits were discussed with the patient/family/POA. Questions were solicited and answers provided to the satisfaction of the patient/family/POA.
--- NOTE | 2024-12-21 07:18 | P.HP_ITS ---
History of Present Illness History of Present Illness Consent: Risks, benefits, and alternatives have been discussed and questions answered. Patient agrees to proceed with procedure. Chief complaint: menorrhagia Narrative: Cara Thakkar is a 49 year old female with a change in her cycles over several months. Cycles have become heavy and long with clotting. The blood work shows mild anemia. It was recommended to undergo a hysteroscopy D&C for further evalu ation. Risks of infection, bleeding, perforation, and possible pathology are reviewed. Patient voices understanding and agrees to proceed. Review of Systems Review of Systems: not repeated day of surgery; patient states no changes in status PMFSH Past Medical History Medical History (Updated 12/21/24 @ 07:21 by Sandra Donald MD) Elective X1 (normal spontaneous vaginal delivery) X2 Surgical History Surgical History (Updated 12/21/24 @ 07:21 by Sandra Donald MD) Status post tonsillectomy Status post loop electrosurgical excision procedure (LEEP) of cervix Social History Social History Smoking status: Never smoker Alcohol use details: 4 drinks/month Substance use: never Substance use type: does not use Living arrangements: with family Meds Home Medications and Allergies Home Medications ?Medication ?Instructions ?Recorded ?Confirmed ?Type ascorbic acid (vitamin C) 1,000 mg 1 g PO DAILY 12/10/24 12/21/24 History capsule berberine chloride 500 mg capsule 500 mg PO DAILY 12/10/24 12/21/24 History ferrous sulfate 325 mg (65 mg 325 mg PO DAILY 12/10/24 12/21/24 History iron) tablet (Feosol) multivitamin (Daily Multi-Vitamin 1 tablet PO DAILY 12/10/24 12/21/24 History tablet) vit D3-folic acid-vit B2-B6-B12 1 tablet PO DAILY 12/10/24 12/21/24 History 2,000 unit-800 mcg-0.32 mg tablet Allergies Allergy/AdvReac Type Severity Reaction Status Date / Time No Known Allergies Allergy Unverified 12/21/24 06:46 Vital Signs Vital Signs - 24 hr 12/21/24 06:11 Temperature 97.8 F Pulse Rate 64 Respiratory Rate 16 Blood Pressure 113/77 Pulse Oximetry 100 Oxygen Delivery Room Air Exam Const: General: healthy appearing and alert Orientation/consciousness: patient oriented x3 Resp: Effort & Inspection: normal respiratory effort : External Female Exam: normal external appearance Speculum Exam - Vagina: normal appearance of the vagina and normal vaginal discharge Speculum Exam - Cervix: normal appearance of the cervix Bimanual exam- vagina & uterus: uterine size normal and consistency normal Bimanual Exam- Adnexa, other: normal adnexae and No adnexal tenderness Neuro: General: patient oriented x3 Assessment and Plan Assessment and plan (1) Menorrhagia: Code(s): N92.0 - Excessive and frequent menstruation with regular cycle Status: Acute Assessment and Plan: Plan to proceed with D&C hysteroscopy
--- NOTE | 2024-12-21 07:18 | WPDHPUPDATE1 ---
History and Physical Update Update Date/Time: 12/21/24 07:18 History and Physical has been reviewed, including an updated exam of the patient. There are NO changes in the patient's condition. Risks, benefits, and alternatives have been discussed and questions answered. Patient agrees to proceed with procedure.
[2024-12-21 07:26] LABS: BEDSIDEPREGUCG Negative (Negative)
--- NOTE | 2024-12-21 07:52 | P.OP_ITS ---
Procedure Note - Detailed Date of Procedure 12/21/24 Pre-op Diagnosis menorrhagia Post-op Diagnosis Same Procedure Performed D&C hysteroscopy Surgeon Sandra Donald MD Anesthesia MAC Findings Thickened endometrium consistent with secretory Description of Procedure The patient was taken to the operating room and placed under anesthesia in the dorsal lithotomy position. She was prepped and draped in the usual sterile fashion. Kirkland speculum was placed in the vagina and the cervix grasped on the anterior lip with a tenaculum. Due to stenosis the Hegar dilators are used. The cervix was able to be entered and the uterus sounds to 8cm. The hysterosc ope was placed and with the above-stated findings it is difficult to evaluate the endometrium. The small Aveta resection device is used to remove the thickened endometrium and the remainder of the endometrium appears grossly normal. The hysteroscope was removed and the sharp curette used to curette the endometrium until a good uterine cry was noted in all areas. Instruments are removed. Sponge, needle, and instrument counts are correct per the OR staff. The patient is taken to recovery in stable condition. Estimated Blood Loss 5 Drains No Packing No Pathology Yes (Endometrial shavings and curettings) Complications No immediate complications Condition Stable Disposition PACU
[2024-12-21 07:53] VITALS: BP 97/63; PULSE 60; RESP 14; O2SAT 100
[2024-12-21 08:15] VITALS: BP 104/69; PULSE 67; RESP 20
[2024-12-21 08:45] VITALS: BP 105/82; PULSE 58; RESP 20
[2024-12-21 09:05] VITALS: BP 105/82; PULSE 55; RESP 20
== END 2024-12-21 09:10 | disposition home or self-care (01) ==
PROVIDERS: Visit Provider Obstetrics & Gynecology Gynecology
PROC: 0U5B8ZZ Destruction of Endometrium, Via Natural or Artificial Opening Endoscopic (ICD-10-PCS; CPT 58563; principal; 2024-12-21 07:30)
DX: N92.0 Excessive and frequent menstruation with regular cycle (principal); N71.1 Chronic inflammatory disease of uterus; D64.9 Anemia, unspecified
CPT/HCPCS: 58558; 88305; A9270; J2003; J2250; J2405; J2704; J3010; J7120